=== PATIENT | male | born 1950 | race Caucasian/White ===

== ENCOUNTER 2022-05-11 16:44 | Emergency (ER) | payer MEDICARE, OTHER ==
[2022-05-11] MEDS ORDERED: ONDANSETRON 4 MG/2 ML VIAL IVP STA (17:07)
[2022-05-11] MEDS ORDERED: HYDROmorphone 1 MG/ML CARPUJECT IVP STA (17:07)
[2022-05-11] MEDS ORDERED: SODIUM CHLORIDE 0.9% 1,000 ML IV STA (17:07)
--- NOTE | 2022-05-11 17:13 | ED Physician Documentation ---
History of Present Illness - Stated complaint Stated Complaint: NECK PX/BUMP - Chief complaint Chief Complaint: Heent - History obtained from History obtained from: Patient - Additonal information Additional information: He had a benign mass removed from his neck about 2 years ago. He does not know what it was. Over the last 4 days he has developed left anterior neck swelling and pain in the same site. He went to the urgent care and was referred here for further evaluation and treatment but prior to to coming here he filled a prescription for Augmentin he was given there. He denies fevers but his daughter thinks he is feeling warm and he is having chills. He is visiting us from [place]. Review of Systems Ten Systems: 10 systems reviewed and negative Constitutional: reports: Chills Nose: denies: Rhinorrhea / runny nose Throat: reports: Sore throat Cardiac: denies: Chest pain / pressure, Palpitations Respiratory: denies: Dyspnea, Cough PD PAST MEDICAL HISTORY - Allergies Allergies/Adverse Reactions: Allergies Allergy/AdvReac Type Severity Reaction Status Date / Time No Known Drug Allergies Allergy Verified 05/11/22 16:53 PD ED PE NORMAL - Vitals Vital signs reviewed: Yes - General General: Alert and oriented X 3, No acute distress - HEENT HEENT: Ears normal, Moist mucous membranes, Pharynx benign, Other (He has some tenderness in an area that is just anterior and inferior to the angle of left mandible. He has multiple fillings but no tender teeth, trismus, sublingual edema or tenderness. The remainder of his oropharyngeal exam is normal.) - Neuro Neuro: Alert and oriented X 3, Normal speech Results - Vitals Vitals: Vital Signs - 24 hr 05/11/22 05/11/22 05/11/22 16:48 18:36 19:52 Temperature 37.4 C Heart Rate 109 H 100 103 H Respiratory 20 29 H 18 Rate Blood Pressure 157/88 H 122/69 112/73 O2 Saturation 97 95 95 05/11/22 20:54 Temperature Heart Rate 86 Respiratory 24 Rate Blood Pressure 99/62 O2 Saturation 93 Oxygen O2 Source Room air - Labs Labs: Laboratory Tests 05/11/22 05/11/22 17:25 17:25 WBC 14.5 H RBC 4.87 Hgb 14.3 Hct 44.0 MCV 90.3 MCH 29.4 MCHC 32.5 RDW 14.1 Plt Count 245 MPV 10.0 Neut # (Auto) 13.5 H Lymph # (Auto) 0.3 L Walsh # (Auto) 0.5 Eos # (Auto) 0.0 Baso # (Auto) 0.0 Absolute Nucleated RBC 0.00 Nucleated RBC % 0.0 Sodium 139 Potassium 4.0 Chloride 103 Carbon Dioxide 27 Anion Gap 9.0 BUN 21 H Creatinine 1.2 Estimated GFR (MDRD) 60 L Glucose 138 H Calcium 9.1 PD MEDICAL DECISION MAKING - ED course Complexity details: considered differential, d/w patient, other (Care to Dr Gonsalez at shift change pending CT read) Departure - Departure Disposition: Home, Self Care Clinical Impression: Submandibular swelling Condition: Stable Comments: Your CT scan did not show any abscess or drainable fluid collection or unusual tissue types (tumors) in that area. They did note some soft tissue swelling in the back of the throat. The process in the submandibular area may be slightly extended there. I would have you take the antibiotic prescribed by the clinic earlier. Tylenol if needed for pains. Stay well-hydrated. Recheck if not improving well over the next few days and return if worsening in particular with any feeling of impedance of swallowing or breathing. Follow-up with your primary care back home as follow-up of the parapharyngeal swelling is recommended. Discharge Date/Time: 05/11/22 20:55
[2022-05-11 17:31] LABS: BASOPHILS % (AUTO) 0.3 %; EOSINOPHILS % (AUTO) 0.2 %; HGB - HEMOGLOBIN 14.3 g/dL (14.0-18.0); LYMPHOCYTES # (AUTO) 0.3 10^3/uL (1.5-3.5); LYMPHOCYTES % (AUTO) 2.2 %; MEAN CORPUSCULAR HEMOGLOBIN 29.4 pg (27.0-31.0); MEAN CORPUSCULAR HGB CONC 32.5 g/dL (32.0-36.0); MEAN CORPUSCULAR VOLUME 90.3 fL (80.0-94.0); MONOCYTES # (AUTO) 0.5 10^3/uL (0.0-1.0); MONOCYTES % (AUTO) 3.4 %; NEUTROPHILS # (AUTO) 13.5 10^3/uL (1.5-6.6); NEUTROPHILS % (AUTO) 93.6 %; PLT - PLATELET COUNT 245 10^3/uL (130-450); RED BLOOD COUNT 4.87 10^6/uL (4.70-6.10); RED CELL DISTRIBUTION WIDTH 14.1 % (12.0-15.0); WHITE BLOOD COUNT 14.5 x10^3/uL (4.8-10.8)
[2022-05-11 17:40] LABS: CALCIUM 9.1 mg/dL (8.5-10.3); CREATININE 1.2 mg/dL (0.6-1.2)
--- NOTE | 2022-05-11 20:06 | CT Report ---
PROCEDURE: SOFT TISSUE NECK W INDICATIONS: neck swelling CONTRAST: IV CONTRAST: Optiray 320 ml: 100 PO CONTRAST: *NO PO CONTRAST TECHNIQUE: After the administration of intravenous contrast, 3.0 mm axial sections acquired from the sella to th e aortic arch. Additional oblique axial 3.0 mm sections acquired through the pharynx. 3 mm thick co gina reformats were generated. For radiation dose reduction, the following was used: automated exp osure control, adjustment of mA and/or kV according to patient size. COMPARISON: None. FINDINGS: Image quality: Excellent. Lymph nodes: Borderline enlarged left level 2A lymph node measuring 1.0 cm (3/78) No overtly enlarge d lymph nodes seen throughout the neck. Vessels: Visualized vasculature appears patent. Neck spaces: Possible soft tissue thickening/asymmetry or mucosal lesion along left aspect of the louisa pharynx and pharynx (for example series 3 image 78) with possible lateral deviation of the left vocal fold. The pyriform sinuses, epiglottis, vallecula, and tongue base all appear normal. Extramucosal spaces appear unremarkable. Glands: The parotid and submandibular glands appear normal. The thyroid is normal in size. Miscellaneous: Visualized brain and orbits appear normal. Lung apices appear clear. Superficial so ft tissues appear normal. Bones: No suspicious bony lesions. Visualized sinuses and mastoids appear unremarkable. IMPRESSION: 1. No definite etiology for left neck swelling identified. No drainable fluid collection visualized. Close clinical follow-up is recommended if the symptoms persist or fail to improve, a repeat examinat ion might be helpful for re-evaluation. 2. Possible soft tissue thickening/asymmetry or mucosal lesion along left aspect of the oropharynx an d pharynx with possible lateral deviation of the left vocal fold. Attention to this area on follow-up and/or direct visualization may be helpful. Reviewed by: Shad Galeana MD on 05/11/2022 8:05 PM PDT Approved by: Shad Galeana MD on 05/11/2022 8:05 PM PDT Station ID: [id number]
--- NOTE | 2022-05-11 20:26 | ED Physician Documentation ---
ED Addendum - Addendum Addendum: 05/11/22 20:24The patient was awaiting results of the CT report. This report stated no identified cause for the submandibular swelling or tenderness. Particularly no abscess or tumors. They did note some possible soft tissue swelling in the left oropharynx area, with possible mild deviation of the vocal cord. with follow-up recommended. I conveyed these results to the patient and give them a copy of the radiology report and a disc of their images as he does live out of town will be leaving in a few days. He was prescribed antibiotics from the clinic and should continue with those. He has a plan to follow-up with his primary care upon return later this coming week. Disposition: The patient is discharged home in stable condition. Diagnoses: 1. Submandibular swelling and tenderness 2. Parapharyngeal soft tissue swelling 05/11/22 20:25 05/11/22 20:26
[2022-05-11] MEDS ORDERED: DEXAMETHASONE 10 MG/ML VIAL IVP STA (20:31)
[2022-05-11] MEDS ORDERED: cefTRIAXone 1 GM VIAL IVP STA (20:31)
[2022-05-11 20:54] VITALS: BP 99/62
== END 2022-05-11 20:55 | disposition home or self-care (01) ==
LOC: ED 16:44
DX: R22.0 Localized swelling, mass and lump, head (principal)
CPT/HCPCS: 36415; 70491; 80048; 85025; 96361; 96374; 96375; 99282; 99284; J1170; Q9967